=== PATIENT | male | born 2000 | race Caucasian/White ===

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

== ENCOUNTER 2019-10-28 20:12 | Emergency (ER) | payer BC ==
[~2019-10-28] VITALS: Ht 188 cm; Wt 82.7 kg
[2019-10-28 20:38] VITALS: BP 146/68; PULSE 79; TEMP 98.9
== END 2019-10-28 22:01 | disposition left against medical advice (07) ==
LOC: COL.ER 20:12
DX: N50.812 Left testicular pain (principal)

== ENCOUNTER 2021-01-24 16:35 | Emergency (ER) | payer OTHER ==
[~2021-01-24] VITALS: Ht 188 cm; Wt 73.6 kg
[~2021-01-24 16:35] MED LIST changes: -ELIQUIS 5MG PO
[2021-01-24 16:50] VITALS: TEMP 98.5
[2021-01-24 16:53] LABS: INR 1.2 (0.8-3.0); PROTHROMBIN TIME 13.7 SECONDS (9.7-12.8)
[2021-01-24 17:18] LABS: BASO % 0.7 % (0.0-2.0); EOS % 0.5 % (0-4.0); GRAN # 2.5 (1.4-6.5); GRAN % 58.6 % (42.2-75.2); HEMATOCRIT 42.4 % (42.0-52.0); LYMPH % 23.7 % (20.0-51.0); MEAN CELL VOLUME 92 fl (80.0-100.0); MEAN CORPUSCULAR HEMOGLOBIN 30 pg (27.0-31.0); MEAN CORPUSCULAR HGB CONC 33 g/dl (33.0-37.0); MEAN PLATELET VOLUME 9.2 fl (7.4-10.4); MONO # 0.7 (0.1-0.6); MONO % 16.5 % (1.7-9.3); PLATELET COUNT 211 K/mm3 (130-400); RED BLOOD COUNT 4.63 M/mm3 (4.20-5.60); REDCELL DISTRIBUTION WIDTH-CV 12.1 % (11.5-14.5)
[2021-01-24 17:31] LABS: CALCIUM 8.9 mg/dL (8.4-10.2); CREATININE, serum 1.08 (0.66-1.25); POTASSIUM 4.4 mmol/L (3.4-5.0)
[2021-01-24] MEDS ORDERED: ELIQUIS 5MG PO ×2 (18:56)
[2021-01-24 19:30] VITALS: BP 128/70; PULSE 72
[2021-01-26 11:58] LABS: PROTEIN C ACTIVITY 77 % (70-150)
[2021-01-26 16:29] LABS: FACTOR V 68 % (70-120)
== END 2021-01-24 19:30 | disposition home or self-care (01) ==
LOC: COL.ER 16:35
PROVIDERS: Physician Assistant
DX: I26.99 Other pulmonary embolism without acute cor pulmonale (principal); F17.290 Nicotine dependence, other tobacco product, uncomplicated; Z20.822 Contact with and (suspected) exposure to COVID-19
CPT/HCPCS: Q9967

== ENCOUNTER → 2021-01-24 | Outpatient (CLI) | payer OTHER ==
[~2021-01-24] MED LIST changes: +ELIQUIS 5MG PO
== END ==
LOC: ZLAB.KSTAT 15:55 → ZCOL.LAB 15:55
DX: M79.89 Other specified soft tissue disorders (principal)

== ENCOUNTER → 2021-01-25 | Outpatient (CLI) | payer OTHER ==
[~2021-01-25] MED LIST changes: +ELIQUIS 5MG PO
== END ==
LOC: COL.VAS 13:30
DX: I82.B12 Acute embolism and thrombosis of left subclavian vein (principal); M79.89 Other specified soft tissue disorders